=== PATIENT | female | born 1960 | race Caucasian/White ===

== ENCOUNTER 2019-01-12 21:01 | Emergency (ER) | payer BC, SELFPAY ==
[2019-01-12 21:13] VITALS: BP 128/78; PULSE 64; RESP 12; TEMP 36.3; O2SAT 100
--- NOTE | 2019-01-12 21:21 | DI.US.S_ITS ---
PROCEDURE: US ABDOMEN LIMITED INDICATIONS: severe epigastric pain, nausea, radiation to back TECHNIQUE: Real-time focused scanning was performed of the abdomen, with image documentation. COMPARISON: None. FINDINGS: Liver is normal in size and has homogeneous echotexture. Multiple gallstones identified. No gallbladder wall thickening. Gallbladder wall measures 1.7 mm. No pericholecystic fluid. Positive sonographic Warner sign reported. Common bile duct is at the upper limits of normal for size measuring 6.5 mm. Head and body of pancreas are sonographically normal. Tail of pancreas not visualized about as cannot be evaluated. IMPRESSION: Cholelithiasis without sonographic evidence of cholecystitis. If there is continued clinical concern for cholecystitis, than nuclear medicine scan should be considered for further evaluation. Dictated by: Laquita Archer MD, PhD on 01/13/2019 at 7:33 Approved by: Laquita Archer MD, PhD on 01/13/2019 at 7:35
[2019-01-12 21:30] LABS: Add Manual Diff / Slide Review NO; Basophils Absolute Auto 0 /uL (0-100); Basophils Percent Auto 0.5 % (0-2); Eosinophils Absolute Auto 100 /uL (0-450); Eosinophils Percent Auto 0.9 % (2-4); Hematocrit 37.7 % (36-46); Lymphocytes Absolute Auto 1200 /uL (1100-4500); Lymphocytes Percent Auto 20.9 % (25-40); Mean Corpuscular HGB Conc 34.3 % (30-36); Mean Corpuscular Hemoglobin 33.3 PG (26-34); Mean Corpuscular Volume 97.1 fL (80-100); Monocytes Absolute Auto 400 /uL (0-900); Monocytes Percent Auto 7.2 % (3-14); Neutrophils Absolute Auto 4100 /uL (1500-7000); Neutrophils Percent Auto 70.5 % (50-75); Platelet Count 184 X10^3/uL (150-400); Red Blood Cell Count 3.88 X10^6/uL (4.0-5.2); Red Cell Distribution Width 12.6 % (11.6-14.8); White Blood Cell Count 5.8 X10^3/uL (4.5-11.0)
--- NOTE | 2019-01-12 21:30 | PC.NURSE ---
Pt states midsternal pain since 1000am hx of gerd, took pepcid and rolaids not helping denies cardiac hx is visiting on vacation from [facility]. Denies difficulty breathing. [ End ]
[2019-01-12] MEDS: SODIUM CHLORIDE 0.9% 1,000 ML 150 ML IV (21:35)
[2019-01-12 21:45] LABS: Alanine Aminotransferase 18 IU/L (9-52); Albumin 4.5 g/dL (3.5-5.0); Albumin Globulin Ratio 1.6 (1.0-2.8); Alkaline Phosphatase 65 U/L (38-126); Aspartate Aminotransferase 27 IU/L (14-36); BUN Creatinine Ratio 18.3 (6-22); Bilirubin Total 0.3 mg/dL (0.2-1.3); Blood Urea Nitrogen 11 mg/dL (7-17); Calcium 9.8 mg/dL (8.4-10.2); Carbon Dioxide 27 mmol/L (22-32); Chloride 105 mmol/L (98-107); Creatine Kinase 69 U/L (30-135); Estimated Glomerular Filt Rate > 60.0 mL/min (>60); Globulin 2.8 g/dL (1.7-4.1); Glucose 111 mg/dL (70-100); HEMOLYSIS < 15 (0-50); Lipase 125 U/L (23-300); Potassium 3.8 mmol/L (3.4-5.1); Sodium 139 mmol/L (137-145); Total Protein 7.3 g/dL (6.3-8.2)
[2019-01-12 21:56] LABS: Troponin I < 0.012 ng/mL (0.01-0.034)
[2019-01-12 22:06] VITALS: BP 116/63; PULSE 54; RESP 16; O2SAT 100
[2019-01-12 23:00] VITALS: BP 104/53; PULSE 68; RESP 15; O2SAT 100
[2019-01-12] MEDS: HYDROCODONE/ACET 5/325 PREPACK 1 BOTTLE MISC (23:28)
[2019-01-12] MEDS: ONDANSETRON 4 MG ODT PREPACK 1 BOTTLE MISC (23:28)
--- NOTE | 2019-01-27 05:01 | ED_ITS ---
HPI - Chest Pain General Chief Complaint: Chest Pain Stated Complaint: CHEST PAIN Time Seen by Provider: 01/12/19 21:05 Source: patient and family Mode of arrival: ambulatory Limitations: no limitations History of Present Illness HPI narrative: 59-year-old female nonsmoker presents with in the chief complaint of epigastric and right upper quadrant pain. It is sharp and stabbing and radiates to her back. She states it is worse with motion and improves with rest. She denies cardiac equivalent such as dizziness, weakness or lightheadedness. She has no shortness of breath MD complaint: chest pain Onset (ago): hour(s) Duration: constant Related Data Previous Rx's Medication Instructions Recorded hydrocodone-acetaminophen 1 tab PO Q4-6H PRN #10 tab 01/12/19 ondansetron 4 mg PO TID-QID PRN #10 tab 01/12/19 Allergies Allergy/AdvReac Type Severity Reaction Status Date / Time codeine Allergy Verified 01/12/19 21:58 Review of Systems Constitutional Denies chills, Denies fever(s), Denies lethargy and Denies weakness Eyes Denies change in vision, Denies eye discharge, Denies irritation and Denies loss of vision ENT Ears, Nose, Mouth, and Throat: Denies change in voice, Denies neck pain and Denies sore throat Cardiovascular Denies chest pain, Denies irregular heart rhythm, Denies lightheadedness, Denies palpitations, Denies dyspnea, Denies dyspnea on exertion and Denies orthopnea Respiratory Denies cough, Denies dyspnea, Denies dyspnea on exertion and Denies wheezing Gastrointestinal Gastrointestinal: Reports abdominal pain, Denies change in bowel habits, Denies diarrhea, Denies nausea and Denies vomiting Genitourinary Denies hematuria, Denies flank pain, Denies urinary incontinence and Denies urinary urgency Musculoskeletal Denies neck pain Integumentary/Breasts Denies pruritus, Denies erythema, Denies rash and Denies wounds Neurologic Denies confusion, Denies loss of vision and Denies weakness Psychiatric Denies anxiety, Denies confusion, Denies depression, Denies homicidal ideation and Denies suicidal ideation Endocrine Denies palpitations Hematologic/Lymphatic Denies easy bruising Allergic/Immunologic Denies wheezing Exam Narrative Exam Narrative: GENERAL: [59] year old patient appears stated age. Well- nourished, well-developed patient, in mild distress. HEAD: Atraumatic. Normocephalic. EYES: Pupils equal round and reactive. Extraocular motions intact. No scleral icterus. No injection or drainage. ENT: Nose without bleeding, purulent drainage. Throat without erythema, tonsillar hypertrophy or exudate. Airway patent. NECK: Trachea midline. Non tender CARDIOVASCULAR: Regular rate and rhythm without murmurs, gallops, or rubs. RESPIRATORY: Clear to auscultation. Breath sounds equal bilaterally. No wheezes, rales, or rhonchi. GASTROINTESTINAL: Abdomen soft, tender in RUQ, nondistended. EXTREMITIES: No edema or joint tenderness. BACK: Nontender without deformity or crepitance. No flank tenderness. NEURO: AOx3. SKIN: No rash or erythema of visible areas Initial Vital Signs Initial Vital Signs: Vital Signs Temperature 97.3 F L 01/12/19 21:13 Pulse Rate 64 01/12/19 21:13 Respiratory Rate 12 01/12/19 21:13 Blood Pressure 128/78 01/12/19 21:13 Pulse Oximetry 100 01/12/19 21:13 Course Orders Ordered: Discontinued Medications Hydrocodone Bitart/Acetaminophen (Vicodin Prepack) 1 bottle MISC SEEINSTR ONE Stop: 01/12/19 23:17 Last Admin: 01/12/19 23:28 Dose: 1 bottle Sodium Chloride (Normal Saline 0.9%) 1,000 mls @ 150 mls/hr IV CONT IVONNE Last Infusion: 01/12/19 23:28 Dose: 150 mls/hr Admin: 01/12/19 21:35 Dose: 150 mls/hr Ondansetron HCl (Zofran Odt Prepack) 1 bottle MISC SEEINSTR ONE Stop: 01/12/19 23:17 Last Admin: 01/12/19 23:28 Dose: 1 bottle MDM - Chest Pain Lab Data Result diagrams: 01/12/19 21:15 01/12/19 21:15 Lab Results 01/12/19 01/12/19 Range/Units 21:15 21:15 WBC 5.8 (4.5-11.0) X10^3/uL RBC 3.88 L (4.0-5.2) X10^6/uL Hgb 13.0 (12.0-16.0) g/dL Hct 37.7 (36-46) % MCV 97.1 (80-100) fL MCH 33.3 (26-34) PG MCHC 34.3 (30-36) % RDW 12.6 (11.6-14.8) % Plt Count 184 (150-400) X10^3/uL Neut % (Auto) 70.5 (50-75) % Lymph % (Auto) 20.9 L (25-40) % [place] % (Auto) 7.2 (3-14) % Eos % (Auto) 0.9 L (2-4) % Baso % (Auto) 0.5 (0-2) % Neut # (Auto) 4100 (2485-1159) /uL Lymph # (Auto) 1200 (2676-5282) /uL [place] # (Auto) 400 (0-900) /uL Eos # (Auto) 100 (0-450) /uL Baso # (Auto) 0 (0-100) /uL Sodium 139 (137-145) mmol/L Potassium 3.8 (3.4-5.1) mmol/L Chloride 105 (98-107) mmol/L Carbon Dioxide 27 (22-32) mmol/L BUN 11 (7-17) mg/dL Creatinine 0.60 (0.52-1.04) mg/dL Estimated GFR > 60.0 (>60) mL/min BUN/Creatinine Ratio 18.3 (6-22) Glucose 111 H (70-100) mg/dL Calcium 9.8 (8.4-10.2) mg/dL Total Bilirubin 0.3 (0.2-1.3) mg/dL AST 27 (14-36) IU/L ALT 18 (9-52) IU/L Alkaline Phosphatase 65 (38-126) U/L Total Creatine Kinase 69 (30-135) U/L CK-MB (CK-2) TNP CK-MB (CK-2) Rel Index TNP Troponin I < 0.012 (0.01-0.034) ng/mL Total Protein 7.3 (6.3-8.2) g/dL Albumin 4.5 (3.5-5.0) g/dL Globulin 2.8 (1.7-4.1) g/dL Albumin/Globulin Ratio 1.6 (1.0-2.8) Lipase 125 (23-300) U/L Imaging Data US - abdomen: Radiologist's impression: Yessi Ordonez 59 F [address] [address] Ultrasound Report Signed Patient: Yessi Ordonez LMR#: [id number] : 2Acct:[id number] Age/Sex: 58 / FDate of Service: 01/12/19 Loc: ED Accession Number: [id number] Procedure: US abdomen limited Ordering Provider: John Tapia D.O. PROCEDURE: US ABDOMEN LIMITED INDICATIONS: severe epigastric pain, nausea, radiation to back TECHNIQUE: Real-time focused scanning was performed of the abdomen, with image documentation. COMPARISON: None. FINDINGS: Liver is normal in size and has homogeneous echotexture. Multiple gallstones identified. No gallbladder wall thickening. Gallbladder wall measures 1.7 mm. No pericholecystic fluid. Positive sonographic Warner sign reported. Common bile duct is at the upper limits of normal for size measuring 6.5 mm. Head and body of pancreas are sonographically normal. Tail of pancreas not visualized about as cannot be evaluated. IMPRESSION: Cholelithiasis without sonographic evidence of cholecystitis. If there is continued clinical concern for cholecystitis, than nuclear medicine scan should be considered for further evaluation. Dictated by: Laquita Archer MD, PhD on 01/13/2019 at 7:33 Approved by: Laquita Archer MD, PhD on 01/13/2019 at 7:35 Discharge Plan Departure Patient Disposition: Home Clinical Impression: Biliary colic, Cholelithiasis Discharge Date/Time: 01/12/19 23:30 Interventions: ED Discharge Assessment Last Done: 01/12/19 23:30 Instructions: DI for General Gallbladder Conditions Activity Restrictions/Additional Instructions: *You have been diagnosed with [acute cholelithiasis] *What to do: *Take medications as directed *Follow up with your primary care provider in 2-3 days, call for an appointment. Let them know you were seen in the Emergency Department and that we ask that you be seen in follow up *Return to ER if you should have any new, worsening or concerning symptoms Prescriptions: New hydrocodone-acetaminophen 5-325 mg tablet 1 tab PO Q4-6H PRN (Reason: pain) Qty: 10 RF: 0 ondansetron 4 mg tablet,disintegrating 4 mg PO TID-QID PRN (Reason: nausea and vomiting) Qty: 10 RF: 0
== END 2019-01-12 23:30 | disposition home or self-care (01) ==
PROVIDERS: Emergency Provider Emergency Medicine
DX: K80.70 Calculus of gallbladder and bile duct without cholecystitis without obstruction (principal)
CPT/HCPCS: 36591; 76705; 80053; 82550; 83690; 84484; 85025; 93005; 96360; 96361; 99283; 99284